=== PATIENT | male | born 1965 | race African-American/Black ===

== ENCOUNTER 2016-10-11 10:01 | Emergency (ER) | payer OTHER ==
[~2016-10-11] VITALS: Ht 182.9 cm; Wt 94.5 kg
[~2016-10-11 10:01] MED LIST: LISI-662 PO; OMEP20 PO
[2016-10-11] MEDS ORDERED: KETOROLAC TROMETHAMINE 60 MG/2 ML VIAL IM ONE (12:45)
[2016-10-11] MEDS ORDERED: METHOCARBAMOL 500 MG TABLET PO ONE (12:45)
[2016-10-11 13:45] VITALS: BP 134/86
== END 2016-10-11 13:56 | disposition home or self-care (01) ==
LOC: EMS 10:03
DX: M54.42 Lumbago with sciatica, left side (principal); F17.210 Nicotine dependence, cigarettes, uncomplicated; Z88.0 Allergy status to penicillin
CPT/HCPCS: 96372; 99283; J1885

== ENCOUNTER 2017-06-07 05:14 | Emergency (ER) | payer OTHER ==
[~2017-06-07] VITALS: Ht 185.4 cm; Wt 90.9 kg
[2017-06-07 05:25] VITALS: BP 152/100
== END 2017-06-07 06:00 | disposition home or self-care (01) ==
LOC: EMS 05:17
DX: S43.421A Sprain of right rotator cuff capsule, initial encounter (principal); J00 Acute nasopharyngitis [common cold]; I10 Essential (primary) hypertension; F17.210 Nicotine dependence, cigarettes, uncomplicated; Z88.0 Allergy status to penicillin; X58.XXXA Exposure to other specified factors, initial encounter; Y93.89 Activity, other specified; Y92.89 Other specified places as the place of occurrence of the external cause; Y99.8 Other external cause status
CPT/HCPCS: 99283; 99406

== ENCOUNTER 2017-09-01 07:45 | Emergency (ER) | payer OTHER ==
[~2017-09-01] VITALS: Ht 182.9 cm; Wt 90.9 kg
[~2017-09-01 07:45] MED LIST changes: -OMEP20 PO
[2017-09-01] MEDS ORDERED: AMLO-512 PO (08:00)
[2017-09-01] MEDS ORDERED: DiphenhydrAMINE HCL 50 MG/ML VIAL IVP ONE (10:45)
[2017-09-01] MEDS ORDERED: METOCLOPRAMIDE HCL 5 MG/ML 2 ML VIAL IVP ONE (10:45)
[2017-09-01] MEDS ORDERED: KETOROLAC TROMETHAMINE 30 MG/ML VIAL IVP ONE (10:45)
[2017-09-01] MEDS ORDERED: OxyCODONE HCL/ACETAMINOPHEN 5-325 MG TABLET PO ONE (12:45)
[2017-09-01 12:58] VITALS: BP 123/74
== END 2017-09-01 13:34 | disposition home or self-care (01) ==
LOC: EMS 07:47
DX: G43.909 Migraine, unspecified, not intractable, without status migrainosus (principal); I10 Essential (primary) hypertension; F17.210 Nicotine dependence, cigarettes, uncomplicated; Z88.0 Allergy status to penicillin; Z79.899 Other long term (current) drug therapy
CPT/HCPCS: 70450; 96374; 96375; 99284; J1200; J1885; J2765